=== PATIENT | male | born 1955 | race Caucasian/White ===

== ENCOUNTER 2016-10-11 18:46 | Emergency (ER) | payer MEDICAID ==
[~2016-10-11] VITALS: Ht 167.6 cm; Wt 97.0 kg
[~2016-10-11 18:46] MED LIST: BENA20TA65 PO; GLIM4TAB55 PO; HYDR-3498 PO; METF500T4 PO
[2016-10-11 18:50] VITALS: Ht 167.6 cm; Wt 97.0 kg
--- NOTE | 2016-10-11 21:04 | RADRPT ---
PROCEDURE: CT neck without contrast CLINICAL INDICATION: Fifth bone foreign body sensation TECHNIQUE: A CT of the soft tissues of the neck was performed on a Michael 64-slice CT scanner ut ilizing high-resolution axial imaging from the skull base through the cervical thoracic junction. S agittal, coronal, and multiplanar reformatted images were made. CTDI 10.57 mGy and DLP 256.45 mGy-cm . One of the following 3 dose reduction techniques were used during this CT examination: automated exp osure control; adjustment of the mA and /or kV according to patient size; or use of iterative recons truciton technique COMPARISON: Cervical spine CT 12/14/2008 FINDINGS: The imaged portions of the brain, paranasal sinuses, mastoid air cells and middle ear cavities are c lear. The nasopharynx, oropharynx and oral cavity are patent. The bilateral sublingual glands, submandibular glands and parotid glands are normal. No evidence for fish bone or radiodense foreign bodies are present. The visualized hypopharynx, supra glottis, and glottis are normal. The bilateral thyroid lobes are remarkable for a punctate focus of calcification in the right thyroid lobe which may representing ca lcified 2 mm nodule. The bilateral lung apices are clear. Mild vascular calcifications of the thora cic aorta are noted para There is straightening of the normal lordosis of the cervical spine. No acute fractures or traumati c subluxations are present. Mild spondylosis of the C3 through T1 levels. levels are noted. Severe degenerative endplate and disk changes at the C5-6 and C6-7 levels are present. The prevertebral s oft tissues and epiglottis are normal. The posterior elements are intact and well aligned. 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 The axial level s of the cervical spine demonstrate a moderate osteophytic bar and bulge at C5-6. Bilateral uncover tebral osteophytes are present. Mild central canal stenosis, bilateral subarticular recess stenosis and severe bilateral neural foraminal stenosis is present. Mild osteophytic bar and bulge is prese nt at the C6-7 level with bilateral uncovertebral osteophytes. The central canal, bilateral subarti cular recesses are patent. Moderate bilateral neural foraminal stenosis is present. IMPRESSION: 1. No evidence for radiodense foreign bodies, facial bones, or obstruction of the nasopharynx, orop harynx or imaged trachea. 2. Mild spondylosis of the C3 through T1 with severe degenerative endplate and disk changes at C5-6 and C6-7. 3. Mild broad-based disk osteophyte complexes at the C5-6 and C6-7 levels with mild central canal s tenosis at C5-6. 4. Bilateral neural foraminal stenosis at C5-6 and C6-7. 5. Punctate 2 mm right thyroid lobe calcified nodule. Consider thyroid ultrasound. 6. Atherosclerotic vascular disease RPTAT: HDC .Crista Portillo MD, MD Date Time Electronically viewed and signed by .Crista Portillo MD, on 10/11/2016 21:03 .C/
--- NOTE | 2016-10-11 21:33 | ERD ---
ER Documentation Chief Complaint Date/Time DATE: 10/11/16 TIME: 21:25 Chief Complaint foreign body" fish bone" stuck in throat HPI Patient is a 60-year-old male with past medical history of diabetes, hypertension presents to the emergency department with throat irritation status post eating fish earlier today. He states he feels as if there is something stuck in the back of his throat. Patient states his sensation started approximately 2 hours ago. Patient denies any drooling or trismus. Patient denies any difficulty speaking, shortness of breath, chest pain chest tightness , lip swelling, tongue swelling or loss consciousness. ROS All systems reviewed and are negative except as per history of present illness. Medications Home Meds Active Scripts Hydrocodone Bit-Acetaminophen* ([place]*) 5-325 Mg Tab, 1 TAB PO Q6 Y for PAIN, # 20 TAB Prov:SONDRAJOSE EDUARDO X. 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 Reported Medications Metformin Hcl* (Metformin Hcl*) 500 Mg Tablet, 500 MG PO BID 02/13/12 Glimepiride* ([place]maryl*) 4 Mg Tablet, 4 MG PO BID 02/13/12 Benazepril Hcl* (Lotensin*) 20 Mg Tablet, 20 MG PO DAILY 02/13/12 Allergies Allergies: Coded Allergies: No Known Allergy (Unverified , 06/01/15) PMhx/Soc Medical and Surgical Hx: pt denies Surgical Hx History of Surgery: No Anesthesia Reaction: No Hx Neurological Disorder: No Hx Respiratory Disorders: No Hx Cardiac Disorders: Yes (HTNV ) Hx Psychiatric Problems: No Hx Miscellaneous Medical Probl: Yes (DM) Hx Alcohol Use: No Hx Substance Use: No Hx Tobacco Use: No Smoking Status: Never smoker FmHx Family History: diabetes Physical Exam Vitals Vital Signs Date Time Temp Pulse Resp B/P Pulse Ox O2 Delivery O2 Flow Rate FiO2 10/11/16 18:50 98.3 95 20 168/84 98 Physical Exam GENERAL: Well-developed, well-nourished male. Appears in no acute distress. Speaking in full sentences. HEAD: Normocephalic, atraumatic. No deformities or ecchymosis. EYE: Pupils equal, round, and reactive to light. EOMs intact. No conjunctival erythema. No eye discharge. ENT: External ear without any masses or tenderness. Auditory canals clear bilaterally. TM visualized bilaterally, non-erythematous, non-bulging. Nasal mucosa pink with no discharge. Oropharynx is pink without any tonsillar erythema or exudates. No uvula deviation. No kissing tonsils. No oropharynx swelling. No tongue swelling. No lip swelling. NECK: Supple. No meningismus. Normal ROM of the neck. Normal range of motion of the neck. LUNG: Clear to auscultation bilaterally. No rhonchi, wheezing, rales or coarse breath sounds. No stridor noted. HEART: Regular rate and rhythm. No murmurs, rubs or gallops. BACK: No midline tenderness. EXTREMITES: Equal pulses bilaterally. No peripheral clubbing, cyanosis or edema. No unilateral leg swelling. NEUROLOGIC: Alert and oriented to person, place and time. Moving all four extremities. 5/5 strength in all extremities. Normal speech. Steady gait. SKIN: Normal color. Warm and dry. No rashes or lesions. Procedures/MDM ED COURSE: The patient was stable throughout ED course. I kept the patient and/or family informed of laboratory and diagnostic imaging results throughout the ED course. . DIAGNOSTIC IMAGING: Read by radiologist. DIAGNOSTIC IMAGING REPORT Patient: EMERALD BLUE : 1955 Age: 60 Sex: M MR #: [id number] DOS: 10/11/161926 Ordering MD: GARCIA MONCADA PA-C Location: E Room/Bed: PROCEDURE: CT neck without contrast CLINICAL INDICATION: Fifth bone foreign body sensation TECHNIQUE: A CT of the soft tissues of the neck was performed on a Michael 64 -slice CT scanner utilizing high-resolution axial imaging from the skull base through the cervical thoracic junction. Sagittal, coronal, and multiplanar reformatted images were made. CTDI 10.57 mGy and DLP 256.45 mGy-cm. One of the following 3 dose reduction techniques were used during this CT examination: automated exposure control; adjustment of the mA and /or kV according to patient size; or use of iterative reconstruciton technique COMPARISON: Cervical spine CT 12/14/2008 FINDINGS: The imaged portions of the brain, paranasal sinuses, mastoid air cells and middle ear cavities are clear. The nasopharynx, oropharynx and oral cavity are patent. The bilateral sublingual glands, submandibular glands and parotid glands are normal. No evidence for fish bone or radiodense foreign bodies are present. The visualized hypopharynx, supra glottis, and glottis are normal. The bilateral thyroid lobes are remarkable for a punctate focus of calcification in the right thyroid lobe which may representing calcified 2 mm nodule. The bilateral lung apices are clear. Mild vascular calcifications of the thoracic aorta are noted para There is straightening of the normal lordosis of the cervical spine. No acute fractures or traumatic subluxations are present. Mild spondylosis of the C3 through T1 levels. levels are noted. Severe degenerative endplate and disk changes at the C5-6 and C6-7 levels are present. The prevertebral soft tissues and epiglottis are normal. The posterior elements are intact and well aligned. 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 The axial levels of the cervical spine demonstrate a moderate osteophytic bar and bulge at C5-6. Bilateral uncovertebral osteophytes are present. Mild central canal stenosis, bilateral subarticular recess stenosis and severe bilateral neural foraminal stenosis is present. Mild osteophytic bar and bulge is present at the C6-7 level with bilateral uncovertebral osteophytes. The central canal, bilateral subarticular recesses are patent. Moderate bilateral neural foraminal stenosis is present. IMPRESSION: 1. No evidence for radiodense foreign bodies, facial bones, or obstruction of the nasopharynx, oropharynx or imaged trachea. 2. Mild spondylosis of the C3 through T1 with severe degenerative endplate and disk changes at C5-6 and C6-7. 3. Mild broad-based disk osteophyte complexes at the C5-6 and C6-7 levels with mild central canal stenosis at C5-6. 4. Bilateral neural foraminal stenosis at C5-6 and C6-7. 5. Punctate 2 mm right thyroid lobe calcified nodule. Consider thyroid ultrasound. 6. Atherosclerotic vascular disease RPTAT: HDC .Crista Portillo MD, Date Time Electronically viewed and signed by .Crista Portillo MD, on 10/11/2016 21: 03 .C/ CC: GARCIA MONCADA PA-C MEDICAL DECISION MAKING: Patient is a 58-year-old male with past medical history of hypertension, diabetes who presents to the emergency department with throat irritation. Patient states that his symptoms started after eating fish approximately 2 hours ago. Patient felt as if he had a fishbone stuck in the back of his throat. Vitals signs were reviewed. Patient is afebrile. Patient was not hypoxic. Patient was speaking in full sentences. Patient displayed no signs of respiratory distress or respiratory failure. I discussed the patient's case with my supervising physician Dr. Montgomery, prior to ordering imaging studies. CT soft tissue of the neck showed No evidence for radiodense foreign bodies, facial bones, or obstruction of the nasopharynx, oropharynx or imaged trachea. Mild spondylosis of the C3 through T1 with severe degenerative endplate and disk changes at C5-6 and C6-7. Mild broad-based disk osteophyte complexes at the C5-6 and C6-7 levels with mild central canal stenosis at C5-6. Bilateral neural foraminal stenosis at C5-6 and C6-7. Punctate 2 mm right thyroid lobe calcified nodule. Consider thyroid ultrasound. Atherosclerotic vascular disease. At this time, patient's presentation is most consistent with throat irritation. Low suspicion for retained foreign body, airway obstruction, strep pharyngitis, viral pharyngitis, peritonsillar abscess, respiratory distress, respiratory failure, airway obstruction. Discussed the patient's incidental findings of a 2 mm right thyroid lobe calcified nodule with the patient as well as his son. Advised the patient and his son to follow-up with the patient's primary care physician for further management of this incidental finding. Patient and son are in agreement with this plan. DISCHARGE: At this time, patient is stable for discharge and outpatient management. I have instructed the patient to follow-up with his/her primary care physician in 1-2 days. I have discussed with the patient the possibility of needing to see a specialist for further workup and imaging studies if symptoms persist. I have instructed the patient to promptly return to the ER for any new or worsening symptoms including increased pain, fever, chest tightness, difficulty breathing , airway tightening, nausea, vomiting, weakness or LOC. The patient and/or family expressed understanding of and agreement with this plan. All questions were answered. Home care instructions were provided. Departure Diagnosis: Primary Impression: Throat irritation Condition: Stable Patient Instructions: Self-Care for Sore Throats Referrals: [facility] YOU HAVE RECEIVED A MEDICAL SCREENING EXAM AND THE RESULTS INDICATE THAT YOU DO NOT HAVE A CONDITION THAT REQUIRES URGENT TREATMENT IN THE EMERGENCY DEPARTMENT. FURTHER EVALUATION AND TREATMENT OF YOUR CONDITION CAN WAIT UNTIL YOU ARE SEEN IN YOUR DOCTORS OFFICE WITHIN THE NEXT 1-2 DAYS. IT IS YOUR RESPONSIBILITY TO MAKE AN APPOINTMENT FOR FOLOW-UP CARE. IF YOU HAVE A PRIMARY DOCTOR --you should call your primary doctor and schedule an appointment IF YOU DO NOT HAVE A PRIMARY DOCTOR YOU CAN CALL OUR PHYSICIAN REFERRAL HOTLINE AT IF YOU CAN NOT AFFORD TO SEE A PHYSICIAN YOU CAN CHOSE FROM THE FOLLOWING [facility] [address] [facility]. [facility] [address] [facility] [facility] [address] [facility] [address] [facility] [address] [facility] [address] [facility] [address] [facility] YOU HAVE RECEIVED A MEDICAL SCREENING EXAM AND THE RESULTS INDICATE THAT YOU DO NOT HAVE A CONDITION THAT REQUIRES URGENT TREATMENT IN THE EMERGENCY DEPARTMENT. FURTHER EVALUATION AND TREATMENT OF YOUR CONDITION CAN WAIT UNTIL YOU ARE SEEN IN YOUR DOCTORS OFFICE WITHIN THE NEXT 1-2 DAYS. IT IS YOUR RESPONSIBILITY TO MAKE AN APPOINTMENT FOR FOLOW-UP CARE. IF YOU HAVE A PRIMARY DOCTOR --you should call your primary doctor and schedule and appointment IF YOU DO NOT HAVE A PRIMARY DOCTOR YOU CAN CALL OUR PHYSICIAN REFERRAL HOTLINE AT . IF YOU CAN NOT AFFORD TO SEE A PHYSICIAN YOU CAN CHOSE FROM THE FOLLOWING [facility] INSTITUTIONS[facility] [address] [place] [address] [facility] [address] [place] [address] [facility] + [facility] [address] [place] [address] Additional Instructions: Call your primary care doctor TOMORROW for an appointment during the next 1-2 days.See the doctor sooner or return here if your condition worsens before your appointment time. Incidental finding of 2 mm thyroid nodule explained to the patient and son. Patient advised to continue to monitor size of nodule. Thyroid ultrasound recommended on an outpatient basis. GARCIA MONCADA PA-C Oct 11, 2016 21:33
== END 2016-10-11 22:02 | disposition home or self-care (01) ==
LOC: FTE 18:46
DX: J39.2 Other diseases of pharynx (principal); E11.9 Type 2 diabetes mellitus without complications; I10 Essential (primary) hypertension; Z79.84 Long term (current) use of oral hypoglycemic drugs
CPT/HCPCS: 70490